=== PATIENT | female | born 1945 | race Caucasian/White ===

== ENCOUNTER 2020-06-14 10:31 | Emergency (ER) | payer MEDICARE ==
[2020-06-14 11:18] LABS: Bilirubin Negative (Negative); Blood, Urine Trace (Negative); Clarity Clear (Clear); Glucose, Urine (Dipstick) Negative (Negative); Ketone, Urine Negative (Negative); Leukocyte Negative (Negative); Nitrite Negative (Negative); Protein, Urine (Dipstick) Negative (Neg-Trace); Urobilinogen 0.2 mg/dL (Less than 2)
[2020-06-14 11:30] LABS: Bacteria/HPF 1+ HPF (None Seen); Squamous Epithelial 0-3 HPF (0-3)
[2020-06-15 15:36] LABS: SARS-CoV-2 MS2 Positive; SARS-CoV-2 N Gene Negative; SARS-CoV-2 S Gene Negative; SARS-CoV-2 by NAA Not Detected (NotDetected); SARS-CoV-2 orf1ab Negative
== END 2020-06-14 11:30 | disposition home or self-care (01) ==
LOC: BURERS 10:31
DX: R50.9 Fever, unspecified (principal); R05 Cough; R30.0 Dysuria; K21.9 Gastro-esophageal reflux disease without esophagitis; I10 Essential (primary) hypertension; Z20.828 Contact with and (suspected) exposure to other viral communicable diseases
CPT/HCPCS: 99284; U0003; 81003; 81015; 87635

== ENCOUNTER 2022-08-09 16:59 | Emergency (ER) | payer MEDICARE | END 2022-08-09 18:27 | disposition home or self-care (01) | LOC: BURERS 16:59 | DX: J04.0 Acute laryngitis (principal); I11.0 Hypertensive heart disease with heart failure; I50.9 Heart failure, unspecified; Z20.822 Contact with and (suspected) exposure to COVID-19 | CPT/HCPCS: 71045; 87081; 87430; 87804; U0003; U0005 ==

== ENCOUNTER 2023-04-09 11:20 | Emergency (ER) | payer MEDICARE ==
[2023-04-09] MEDS ORDERED: Sulfameth/Trimethoprim DS 800-160mg TAB ONE (11:50)
[2023-04-09] MEDS ORDERED: Cephalexin 250 MG CAP ONE (11:50)
== END 2023-04-09 11:54 | disposition home or self-care (01) ==
LOC: BURERS 11:20
DX: L03.116 Cellulitis of left lower limb (principal); I11.0 Hypertensive heart disease with heart failure; I50.9 Heart failure, unspecified
CPT/HCPCS: 99283